=== PATIENT | male | born 1950 | race Caucasian/White ===

== ENCOUNTER 2016-06-27 09:54 | Outpatient (CLI) | payer MEDICARE, OTHER ==
[~2016-06-27] VITALS: Ht 165.1 cm; Wt 111.1 kg
[~2016-06-27 09:54] MED LIST: ACET-2267 PO; ASP81TEC PO; CARV25TA PO; HYDR-3820 PO; LEVO250T11 PO; LOSA25TA21 PO; MTF500T PO; OXYC5TAB71 PO; RAMI10TA PO; SPIR100T37 PO
--- OUTSIDE RECORDS SUMMARY | 2016-06-27 09:57 | XMS REPORT | Continuity of Care Document ---
Author Author [facility] Organization [facility] Address Unknown Phone Unavailable Care Team Providers Care Preprint Analyst Name Role Phone Pedro Sahil PCP [phone] Source Comments Some departments are not documenting in the electronic medical record. If you do not see the information that you expected, contact Release of Information in the Health Information Management department at [phone] for further assistance in locating additional records.[facility] Active Allergies and Adverse Reactions No Known Allergies Current Medications Prescription Sig. Disp. Refills Start End Date Status Date losartan(+) (COZAAR) 100 Take 100 mg by mouth at Active mg tablet bedtime daily. acetaminophen (TYLENOL) Take 2 Tabs by mouth 0 12/06/19 Active 500 mg tablet every 6 hours as needed 16 for Pain. Max of 4,000 mg of acetaminophen in 24 hours. Indications: PAIN polyethylene glycol 3350 Take 17 g by mouth twice 527 g 3 12/06/19 Active (GLYCOLAX; MIRALAX) 17 daily. 16 gram/dose powder metFORMIN-XR(+) Take 500 mg by mouth Active (GLUCOPHAGE XR) 500 mg twice daily with meals. extended release tablet Indications: TYPE 2 DIABETES MELLITUS oxyCODONE (ROXICODONE, Take 1-2 Tabs by mouth 30 Tab 0 12/14/19 Active OXY-IR) 5 mg tablet every 3 hours as needed 16 Earliest Fill Date: 12/14/15 aspirin EC 81 mg tablet Take 1 Tab by mouth 90 Tab 3 12/14/19 Active daily. Hold for one week. 16 CYCLOBENZAPRINE HCL Take 10 mg by mouth Active (CYCLOBENZAPRINE PO) daily. DICLOFENAC POTASSIUM PO Take by mouth. Active Active Problems Problem Noted Date Tumor of soft tissues 01/23/2016 Retroperitoneal bleed 12/14/2015 Sepsis (HCC) 12/11/2015 Renal cell carcinoma of left kidney (HCC) 10/29/2015 Overview: 5 cm lateral left renal mass - incidental finding Cr 1.4 Left robotic partial nephrectomy 12/04/15. Final pathology [id number], clear cell renal cell carcinoma, Damon 4; margins negative 12/11/15: Postoperative hematoma 04/10/16: Doing well. No evidence of disease recurrence. Hematoma slowly resolving on ultrasound. Patient with new diagnosis of spinal stenosis. L ast Assessment & Plan: Patient doing well overall. He has no evidence of cancer recurrence at this time. He will need continued surveillance. -- F/U [address] scan, CXR, and labs prior -- Referral to general surgery for umbilical hernia repair -- Referral to spine center for second opinion on spinal stenosis -- All questions answered Most Recent Encounters Date Type Specialty Providers Description 04/10/2016 Office Visit Urology Frankie Otoole MD Malignant neoplasm of left kidney (HCC) (Primary Dx); Spinal stenosis, unspecified spinal region; Umbilical hernia without obstruction and without gangrene; Renal cell carcinoma of left kidney (HCC) 04/10/2016 [facility] Frankie Otoole MD Malignant neoplasm of Encounter left kidney, except renal pelvis (HCC) 04/10/2016 [facility] Radiology Frankie Otoole MD Encounter 04/10/2016 [facility] Radiology Frankie Otoole MD Encounter Social History Tobacco Use Types Packs/Day Years Used Date Passive Smoke Exposure - Never Smoker Smokeless Tobacco: Never Used Alcohol Use Drinks/Week oz/Week Comments Yes 1 Glasses of 1.2 wine 1 Shots of liquor Last Filed Vital Signs Vital Sign Reading Time Taken Blood Pressure 131/83 04/10/2016 3:38 PM CORPORATE BUYER Pulse 88 04/10/2016 3:38 PM CORPORATE BUYER Temperature 36.6 C (97.9 F) 03/05/2016 3:46 PM CDT Respiratory Rate - - Height 1.753 m (5' 9") 04/10/2016 3:38 PM CORPORATE BUYER Weight 111.948 kg (246 lb 12.8 04/10/2016 3:38 PM CORPORATE BUYER oz) Body Mass Index 36.43 04/10/2016 3:38 PM CORPORATE BUYER Oxygen Saturation 98% 03/05/2016 3:46 PM CDT Plan of Care Date Type Specialty Providers Description 08/04/2016 Appointment Orthopedic Surgery Bronson Johnson MD [address] [facility] [address] [place] [address] [phone] (Fax) 10/09/2016 Appointment Radiology Frankie Otoole MD [address] [facility] [address] [place] [address] [phone] (Fax) 10/09/2016 Appointment Urology Frankie Otoole MD [address] [facility] [address] [place] [address] [phone] (Fax) Health Maintenance Due Date Last Done Comments Hepatitis C Screening 1950 Physical (Comprehensive) 1958 Exam Pertussis Vaccine 1962 Tetanus Vaccine 01/19/1968 Colorectal Cancer 2001 Screening Shingles Vaccine 2011 Influenza Vaccine 01/03/2016 Prevnar/Pneumovax (#1) 01/19/2016 Results from Last 3 Months COMPREHENSIVE METABOLIC PANEL (04/10/2016 3:20 PM) Component Value Range Sodium 135 (L) 137-147 MMOL/L Potassium 4.2 3.5-5.1 MMOL/L Chloride 103 98-110 MMOL/L Glucose 89 70-100 MG/DL Blood Urea Nitrogen 23 7-25 MG/DL Creatinine 1.29 (H) 0.4-1.24 MG/DL Calcium 9.9 8.5-10.6 MG/DL Total Protein 7.7 6.0-8.0 G/DL Total Bilirubin 0.5 0.3-1.2 MG/DL Albumin 4.3 3.5-5.0 G/DL Alk Phosphatase 35 25-110 U/L AST (SGOT) 24 7-40 U/L CO2 27 21-30 MMOL/L ALT (SGPT) 32 7-56 U/L Anion Gap 5 3-12 eGFR Non 56 (L)Comment: >60 mL/min The eGFR is not validated for use in drug dosing adjustments. Continue to use estimated creatinine clearance per dosing reference text. Please contact the Clinical Pharmacist for questions. eGFR >60Comment: >60 mL/min The eGFR is not validated for use in drug dosing adjustments. Continue to use estimated creatinine clearance per dosing reference text. Please contact the Clinical Pharmacist for questions. Specimen Blood CHEST 2 VIEWS (04/10/2016 2:48 PM) Addenda Addendum by Kam Patel MD on 04/14/2016 10:52 AM Finalized by KAM PATEL M.D. on 04/10/2016 4:11 PM. Dictated by Janneth Orozco M.D. on 04/10/2016 3:07 PM.Addendum: Addendum: Clinical history should include: Primary malignant neoplasm of left kidney Approved by Janneth Orozco M.D. on 04/14/2016 10:47 AM By my electronic signature, I attest that I have personally reviewed the images for this examination and formulated the interpretations and opinions expressed in this report Finalized by KAM PATEL M.D. on 04/14/2016 10:49 AM. Dictated by Janneth Orozco M.D. on 04/14/2016 10:46 AM. Impressions No acute cardiopulmonary abnormality. Approved by Janneth Orozco M.D. on 04/10/2016 3:38 PM By my electronic signature, I attest that I have personally reviewed the images for this examination and formulated the interpretations and opinions expressed in this report Narrative CHEST 2 VIEWS HISTORY: kidney cancer COMPARISON: December 11, 2015 FINDINGS: Cardiac silhouette is within normal limits. Tortuosity of the thoracic aorta. No pulmonary venous congestion. No pleural effusion, pneumothorax or focal consolidative process. Procedure Note Interface, Radiant Results - Mon Apr 14, 2016 10:52 AM CORPORATE BUYER CHEST 2 VIEWS HISTORY: kidney cancer COMPARISON: December 11, 2015 FINDINGS: Cardiac silhouette is within normal limits. Tortuosity of the thoracic aorta. No pulmonary venous congestion. No pleural effusion, pneumothorax or focal consolidative process. IMPRESSION No acute cardiopulmonary abnormality. Approved by Janneth Orozco M.D. on 04/10/2016 3:38 PM By my electronic signature, I attest that I have personally reviewed the images for this examination and formulated the interpretations and opinions expressed in this report RENAL BLADDER LTD (04/10/2016 2:40 PM) Impressions 1.Partial left nephrectomy with fat-filled cortical defect.A crescentic hypoechoic mass overlies the cortical defect, likely a chronic, resolving perinephric hematoma when compared to prior CT 12/11/2015.No discrete renal mass is identified, though continued imaging follow-up is recommended to ensure resolution of this hematoma. 2.Normal appearance of the right kidney. 3.Mild hepatomegaly and diffuse hepatic steatosis. Finalized by Maida Jones M.D. on 04/10/2016 4:14 PM. Dictated by Maida Jones M.D. on 04/10/2016 4:05 PM. Narrative Renal Ultrasound Clinical Indication: Male, 66 years; kidney cancer.History of robotic partial left nephrectomy 12/2015 for clear cell renal carcinoma. Postoperative course was complicated by perinephric hematoma. Technique: Multiple grayscale sonographic images were obtained through the urinary system with additional color Doppler acquisition. Comparison: CT abdomen/pelvis 12/11/2015 and 10/11/2015 Findings: The right kidney measures 11.7 x 5.7 cm.No hydronephrosis or solid renal mass. The left kidney measures 12 x 5.3 cm.A wide, fat filled cortical defect is noted at the lateral aspect of the left kidney related to prior nephrectomy. Just superficial to this, there is a crescentic hypoechoic structure measuring 5 cm in length x 1.7 cm in thickness.No internal blood flow detected in the region of the cortical defect, nor within this crescentic mass.No hydronephrosis or evidence of solid renal mass. The partially distended urinary bladder is unremarkable. Limited views of the liver demonstrate mild hepatomegaly and diffuse hepatic steatosis. Procedure Note Interface, Radiant Results - [place] Apr 10, 2016 4:17 PM CORPORATE BUYER Renal Ultrasound Clinical Indication: Male, 66 years; kidney cancer. History of robotic partial left nephrectomy 12/2015 for clear cell renal carcinoma. Postoperative course was complicated by perinephric hematoma. Technique: Multiple grayscale sonographic images were obtained through the urinary system with additional color Doppler acquisition. Comparison: CT abdomen/pelvis 12/11/2015 and 10/11/2015 Findings: The right kidney measures 11.7 x 5.7 cm. No hydronephrosis or solid renal mass. The left kidney measures 12 x 5.3 cm. A wide, fat filled cortical defect is noted at the lateral aspect of the left kidney related to prior nephrectomy. Just superficial to this, there is a crescentic hypoechoic structure measuring 5 cm in length x 1.7 cm in thickness. No internal blood flow detected in the region of the cortical defect, nor within this crescentic mass. No hydronephrosis or evidence of solid renal mass. The partially distended urinary bladder is unremarkable. Limited views of the liver demonstrate mild hepatomegaly and diffuse hepatic steatosis. IMPRESSION 1. Partial left nephrectomy with fat-filled cortical defect. A crescentic hypoechoic mass overlies the cortical defect, likely a chronic, resolving perinephric hematoma when compared to prior CT 12/11/2015. No discrete renal mass is identified, though continued imaging follow-up is recommended to ensure resolution of this hematoma. 2. Normal appearance of the right kidney. 3. Mild hepatomegaly and diffuse hepatic steatosis. Finalized by Maida Jones M.D. on 04/10/2016 4:14 PM. Dictated by Maida Jones M.D. on 04/10/2016 4:05 PM.
[2016-06-27] MEDS ORDERED: LIDOCAINE 1% INJ 20 ML (XYLOCAINE) VIAL ONE (10:00)
[2016-06-27] MEDS ORDERED: BUPIVACAINE 0.25% 30 ML (SENSORCAINE) VIAL ONE (10:00)
[2016-06-27] MEDS ORDERED: DEXAMETHASONE PF 10 MG/ML (DECADRON) VIAL ONE (10:00)
[2016-06-27 10:04] VITALS: BP 133/93
[2016-06-27] MEDS ORDERED: BUPIVACAINE 0.5% 30 ML (SENSORCAINE) VIAL ONE (10:25)
[2016-06-27 10:43] VITALS: BP 148/103
--- NOTE | 2016-06-27 11:32 | Pain Medicine-Procedure ---
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 PROCEDURE DETAILS: After obtaining an informed consent from the patient, the patient's chart was reviewed. The patient was brought to the procedure room and placed in a prone position. The neck was prepped with antiseptic solution, and under fluoroscopic guidance the articular pillar was identified at C4, C5, C6, and C7 on the right. Then 0.5 cc of 1% Lidocaine was used to anesthetize the skin. A 22 gauge 3.5 inch spinal needle was inserted through the skin under fluoroscopic guidance until it came in touch with the articular pillar at each level. placement of the needles was then confirmed in both the AP and lateral view. The exact samesteps were repeated for the left side. After negative aspiration,10 mg of dexamethasone total was injected in equal alliquots followed by 0.5 cc of 0.5% bupivacaine at each. The patient tolerated the procedure well. The needles were flushed and removed, and a Band-Aide was applied. Complications none JAMAAL WALSH MD Jun 27, 2016 11:32 am
== END 2016-06-27 10:46 | disposition home or self-care (01) ==
LOC: CARD 09:54
PROVIDERS: ATTEND Pain Medicine Pain Medicine
DX: M47.812 Spondylosis without myelopathy or radiculopathy, cervical region (principal)
CPT/HCPCS: 64490; 64491; 64492

== ENCOUNTER 2018-02-09 12:00 | Outpatient (CLI) | payer MEDICARE ==
[~2018-02-09] VITALS: Ht 175.3 cm; Wt 117.9 kg
[~2018-02-09 12:00] MED LIST changes: +DICL75TA2 PO; +GABA-488 PO; +LOSA100T8 PO; -LOSA25TA21 PO; +LOSA25TA6 PO; +METF-397 PO; +OXYC-529 PO; -OXYC5TAB71 PO
== END 2018-02-09 12:09 | disposition home or self-care (01) ==
LOC: PREOP 12:00
PROVIDERS: ATTEND Surgery
DX: Z01.818 Encounter for other preprocedural examination (principal)

== ENCOUNTER → 2018-02-10 | Day surgery (SDC) | payer MEDICARE, OTHER ==
[~2018-02-10] VITALS: Ht 175.3 cm; Wt 117.9 kg
[~2018-02-10] MED LIST changes: +LACTATED RINGERS 1,000 ML IV ONE; +LACTATED RINGERS 1,000 ML IV STA; +MIDAZOLAM 2 MG/2 ML (VERSED) VIAL ONE; +PROPOFOL INJECTION 50 ML IV ONE
--- OUTSIDE RECORDS SUMMARY | 2018-02-10 06:48 | XMS REPORT | Clinical Summary ---
Author Author [facility] Organization [facility] Address Unknown Phone Unavailable Care Team Providers Care Inter Com Servicer Name Role Phone Álvaro Cheney MD Unavailable Frankie Otoole MD Unavailable Fern Becker MD Unavailable Nancy Osborn RN Unavailable Unavailable Nivia Arzola RN 2 Unavailable Heber Ibrahim MD Unavailable Unavailable Lincoln Varghese MD Unavailable Sherry Salter RN Unavailable Unavailable Sahil Vasquez MD PCP Source Comments Some departments are not documenting in the electronic medical record. If you do not see the information that you expected, contact Release of Information in the Health Information Management department at [phone] for further assistance in locating additional records.[facility] Allergies No Known Allergies Current Medications Prescription Sig. Disp. Refills Start End Date Status Date losartan(+) (COZAAR) 100 Take 100 mg by mouth at Active mg tablet bedtime daily. acetaminophen (TYLENOL) Take 2 Tabs by mouth 0 12/06/19 Active 500 mg tabletIndications: every 6 hours as needed 16 Pain for Pain. Max of 4,000 mg of acetaminophen in 24 hours. Indications: PAIN metFORMIN-XR(+) Take 500 mg by mouth Active (GLUCOPHAGE XR) 500 mg twice daily with meals. extended release Indications: TYPE 2 tabletIndications: type 2 DIABETES MELLITUS diabetes mellitus aspirin EC 81 mg tablet Take 1 Tab by mouth 90 Tab 3 12/14/19 Active daily. Hold for one week. 16 gabapentin (NEURONTIN) Take 3 capsules by mouth 810 capsule 3 Active 300 mg three times daily. 90 day 17 capsuleIndications: supply Indications: Neuropathic Pain NEUROPATHIC PAIN diclofenac sodium DR Take 1 tablet by mouth 180 tablet 2 02/13/20 Active (VOLTAREN) 75 mg tablet twice daily. Take with 17 food. *90 day supply* tiZANidine (ZANAFLEX) 2 Take 1 tablet by mouth 30 tablet 5 02/13/20 Active mg tablet three times daily. 17 tamsulosin (FLOMAX) 0.4 Take one capsule by mouth 90 capsule 3 Active mg capsule daily. Take 30 min after 18 same meal. Do not cut/ crush/ chew. Active Problems Problem Noted Date Tumor of soft tissues 01/23/2016 Retroperitoneal bleed 12/14/2015 Sepsis (HCC) 12/11/2015 Renal cell carcinoma of left kidney (HCC) 10/29/2015 Overview: 5 cm lateral left renal mass - incidental finding Cr 1.4 Left robotic partial nephrectomy 12/04/15. Final pathology [id number], clear cell renal cell carcinoma, Damon 4; margins negative 12/11/15: Postoperative hematoma 04/10/16: Doing well. No evidence of disease recurrence. Hematoma slowly resolving on ultrasound. Patient with new diagnosis of spinal stenosis. 10/09/16: Doing well. No evidence of cancer recurrence. He had his umbilical hernia repaired. 04/20/17: No evidence of recurrence on ultrasound, CXR, or labs. 11/02/17: No evidence of recurrence on labs, CXR, or CT scan L ast Assessment & Plan: Patient doing well. No evidence of kidney cancer recurrence. We will now go to yearly surveillance -- F/U one year with labs, CXR, and ultrasound -- Warnings given to patient who expressed understanding -- All questions answered Encounters Date Type Specialty Care Team Description 12/15/2017 Hospital Radiology Allen Rayo MD Encounter 12/15/2017 Ancillary Anesthesia Pain Allen Rayo MD Thoracic radiculopathy Orders from Last 3 Months Family History Medical History Relation Name Comments Cancer-Colon Brother Unknown to Patient Father Cancer Mother Stroke Mother Relation Name Status Comments Brother Alive Father Mother Social History Tobacco Use Types Packs/Day Years Used Date Never Smoker Smokeless Tobacco: Never Used Alcohol Use Drinks/Week oz/Week Comments Yes 1 Glasses of 1.2 wine 1 Shots of liquor Sex Assigned at Date Recorded Not on file Last Filed Vital Signs Vital Sign Reading Time Taken Blood Pressure 143/86 11/02/2017 12:34 PM CDT Pulse 70 11/02/2017 12:34 PM CDT Temperature 36.8 C (98.2 F) 10/16/2017 1:12 PM CDT Respiratory Rate 15 05/28/2017 3:47 PM EXPRESSIVE THERAPIST Oxygen Saturation 95% 10/16/2017 4:20 PM CDT Inhaled Oxygen - - Concentration Weight 123.3 kg (271 lb 12.8 oz) 11/02/2017 12:34 PM CDT Height 175.3 cm (5' 9") 11/02/2017 12:34 PM CDT Body Mass Index 40.14 11/02/2017 12:34 PM CDT Plan of Treatment Health Maintenance Due Date Last Done Comments HEPATITIS C SCREENING 1950 PHYSICAL (COMPREHENSIVE) 1958 EXAM PERTUSSIS VACCINE 1962 TETANUS VACCINE 01/19/1968 COLORECTAL CANCER 2001 SCREENING SHINGLES RECOMBINANT 2001 VACCINE (1 of 2) PNEUMONIA (PCV13/PPSV23) 01/19/2016 VACCINES (1 of 2 - PCV13) INFLUENZA VACCINE 12/02/2017 Implants Implanted Type Area Program Advisor Device Expiration Model / Identifier Date Serial / Lot Patch Surgical Strap Spring Open N/A: CR BARD:DAVOL 01/29/2018 [id number] / Ventralex St Sepra Small Abdomen [id number] / Implanted: Qty: 1 on 08/18/2016 by N/A José Yoder MD Procedures Procedure Name Priority Date/Time Associated Diagnosis Comments FLUORO MOBILE IN OR Routine 12/15/2017 Thoracic radiculopathy Results for this 2:19 PM CDT procedure are in the results section. from Last 3 Months Results * FLUORO MOBILE IN OR (12/15/2017 2:19 PM) Narrative Performed At This order has been auto finalized and does not contain a result. YEIMY CRAIG Performing Organization Address City/State/Zipcode Phone Number YEIMY KIARA from Last 3 Months
--- OUTSIDE RECORDS SUMMARY | 2018-02-10 06:48 | XMS REPORT | Encounter Summary ---
Author Author [facility] Organization [facility] Address Unknown Phone Unavailable Care Team Providers Care Carton Repairer Name Role Phone Álvaro Cheney MD Unavailable Frankie Otoole MD Unavailable Fern Becker MD Unavailable Nancy Osborn RN Unavailable Unavailable Nivia Arzola RN 2 Unavailable Heber Ibrahim MD Unavailable Unavailable Lincoln Varghese MD Unavailable Sherry Salter RN Unavailable Unavailable Sahil Vasquez MD PCP Encounter Details Date Type Department Care Team Description 12/15/2017 [facility]illary [facility] Anesthesia Allen Rayo MD Thoracic radiculopathy Orders [facility] [address] [place] [address] Zaid Sr MD Comp [place] [address] [place] [address] [phone] [place] [address] [phone] Social History Tobacco Use Types Packs/Day Years Used Date Never Smoker Smokeless Tobacco: Never Used Alcohol Use Drinks/Week oz/Week Comments Yes 1 Glasses of 1.2 wine 1 Shots of liquor Sex Assigned at Date Recorded Not on file as of this encounter Functional Status Functional Status Response Date of Assessment Does the patient have a hearing impairment: No 10/16/2017 Does the patient have a visual impairment: Yes 10/16/2017 Does the patient have impaired ambulation: No 05/28/2017 Does the patient have an activity of daily living No 05/28/2017 (ADL) impairment: Does the patient have an instrumental activity of No 05/28/2017 daily living (IADL) impairment: Cognitive Status Response Date of Assessment Does the patient have a cognitive impairment: No 05/28/2017 as of this encounter Plan of Treatment Not on fileas of this encounter Results * FLUORO MOBILE IN OR (12/15/2017 2:19 PM) Narrative Performed At This order has been auto finalized and does not contain a result. YEIMY CRAIG Performing Organization Address City/State/Zipcode Phone Number CHRISTOPHERAMAIRANI CRAIG in this encounter Visit Diagnoses Diagnosis Thoracic radiculopathy Thoracic or lumbosacral neuritis or radiculitis, unspecified
--- OUTSIDE RECORDS SUMMARY | 2018-02-10 06:48 | XMS REPORT | Encounter Summary ---
Author Author [facility] Organization [facility] Address Unknown Phone Unavailable Care Team Providers Care Mechanics Handyman Name Role Phone Álvaro Cheney MD Unavailable Frankie Otoole MD Unavailable Fern Becker MD Unavailable Nancy Osborn RN Unavailable Unavailable Nivia Arzola RN 2 Unavailable Heber Ibrahim MD Unavailable Unavailable Lincoln Varghese MD Unavailable Sherry Salter RN Unavailable Unavailable Sahil Vasquez MD PCP Encounter Details Date Type Department Care Team Description 12/15/2017 Hospital [facility] Allen Rayo MD Encounter [facility] [address] [place] [address] [place] [address] [place] [address] [phone] Social History Tobacco Use Types Packs/Day Years [...] impairment: No 05/28/2017 as of this encounter Medications at Time of Discharge Medication Sig. Disp. Refills Start Date End Date acetaminophen (TYLENOL) Take 2 Tabs by mouth 0 12/06/2015 500 mg tabletIndications: every 6 hours as needed Pain for Pain. Max of 4,000 mg of acetaminophen in 24 hours. Indications: PAIN aspirin EC 81 mg tablet Take 1 Tab by mouth 90 Tab 3 12/14/2015 daily. Hold for one week. diclofenac sodium DR Take 1 tablet by mouth 180 tablet 2 02/12/2017 (VOLTAREN) 75 mg tablet twice daily. Take with food. *90 day supply* gabapentin (NEURONTIN) Take 3 capsules by mouth 810 capsule 3 2016 300 mg three times daily. 90 day capsuleIndications: supply Indications: Neuropathic Pain NEUROPATHIC PAIN losartan(+) (COZAAR) 100 Take 100 mg by mouth at mg tablet bedtime daily. metFORMIN-XR(+) Take 500 mg by mouth (GLUCOPHAGE XR) 500 mg twice daily with meals. extended release Indications: TYPE 2 tabletIndications: type 2 DIABETES MELLITUS diabetes mellitus tiZANidine (ZANAFLEX) 2 Take 1 tablet by mouth 30 tablet 5 02/12/2017 mg tablet three times daily. as of this encounter Plan of Treatment Not on fileas of this encounter Procedures Procedure Name Priority Date/Time Associated Diagnosis Comments FLUORO MOBILE IN OR Routine 12/15/2017 Thoracic radiculopathy Results for this 2:19 PM CDT procedure are in the results section. in this encounter Results * FLUORO MOBILE IN OR (12/15/2017 2:19 PM) Narrative Performed At This order has been auto finalized and does not contain a result. YEIMY CRAIG Performing Organization Address City/State/Zipcode Phone Number [facility] in this encounter Visit Diagnoses Diagnosis Thoracic radiculopathy Thoracic or lumbosacral neuritis or radiculitis, unspecified
--- OUTSIDE RECORDS SUMMARY | 2018-02-10 06:49 | XMS REPORT | Continuity of Care Document ---
Author Author [facility] Organization [facility] Address Unknown Phone Unavailable Allergies Active Description Code Type Severity Reaction Onset Reported/Identified Relationship to Patient Clinical Status Yes No Known Drug Allergies [id number] Drug Allergy Unknown N/A 11/26/2011 Medications There is no data. Problems Date Dx Coded Attending Type Code Diagnosis Diagnosed By 10/05/2015 Ot 250.00 DIAB BRIANDA WO COMPL, TYPE II OR UNSPEC TY 10/05/2015 Ot 272.4 HYPERLIPIDEMIA NEC/NOS 10/05/2015 Ot 276.7 HYPERPOTASSEMIA 10/05/2015 Ot 401.9 HYPERTENSION NOS 10/05/2015 Ot 780.79 OTH MALAISE FATIGUE 10/05/2015 Ot 794.31 ABNORM ELECTROCARDIOGRAM 10/05/2015 Ot 794.31 ABNORM ELECTROCARDIOGRAM 10/09/2015 TJ JOSEPH MD Ot M47.892 OTHER SPONDYLOSIS, CERVICAL REGION 10/09/2015 TJ JOSEPH MD Ot M47.896 OTHER SPONDYLOSIS, LUMBAR REGION 10/09/2015 OPAL ESPANA, TJ Garza Ot M51.24 OTHER INTERVERTEBRAL DISC DISPLACEMENT, 10/09/2015 TJ JOSEPH MD Ot M51.27 OTHER INTERVERTEBRAL DISC DISPLACEMENT, 10/09/2015 TJ JOSEPH MD Ot M54.2 CERVICALGIA 10/09/2015 TJ JOSEPH MD Ot M54.5 LOW BACK PAIN 10/09/2015 TJ JOSEPH MD Ot M54.9 DORSALGIA, UNSPECIFIED 10/09/2015 TJ JOSEPH MD Ot N28.9 DISORDER OF KIDNEY AND URETER, UNSPECIFI 10/09/2015 TJ JOSEPH MD Ot R22.1 LOCALIZED SWELLING, MASS AND LUMP, NECK 10/10/2015 TJ JOSEPH MD Ot M47.892 OTHER SPONDYLOSIS, CERVICAL REGION 10/10/2015 TJ JOSEPH MD Ot M47.896 OTHER SPONDYLOSIS, LUMBAR REGION 10/10/2015 TJ JOSEPH MD Ot M51.24 OTHER INTERVERTEBRAL DISC DISPLACEMENT, 10/10/2015 TJ JOSEPH MD Ot M51.27 OTHER INTERVERTEBRAL DISC DISPLACEMENT, 10/10/2015 TJ JOSEPH MD Ot M54.2 CERVICALGIA 10/10/2015 TJ JOSEPH MD Ot M54.5 LOW BACK PAIN 10/10/2015 TJ JOSEPH MD Ot M54.9 DORSALGIA, UNSPECIFIED 10/10/2015 TJ JOSEPH MD Ot N28.9 DISORDER OF KIDNEY AND URETER, UNSPECIFI 10/10/2015 TJ JOSEPH MD Ot R22.1 LOCALIZED SWELLING, MASS AND LUMP, NECK 10/11/2015 Ot 250.00 DIAB BRIANDA WO COMPL, TYPE II OR UNSPEC TY 10/11/2015 Ot 272.4 HYPERLIPIDEMIA NEC/NOS 10/11/2015 Ot 276.7 HYPERPOTASSEMIA 10/11/2015 Ot 401.9 HYPERTENSION NOS 10/11/2015 Ot 780.79 OTH MALAISE FATIGUE 10/11/2015 Ot 794.31 ABNORM ELECTROCARDIOGRAM 10/11/2015 Ot 794.31 ABNORM ELECTROCARDIOGRAM 10/11/2015 TJ JOSEPH MD Ot M47.892 OTHER SPONDYLOSIS, CERVICAL REGION 10/11/2015 TJ JOSEPH MD Ot M47.896 OTHER SPONDYLOSIS, LUMBAR REGION 10/11/2015 TJ JOSEPH MD Ot M51.24 OTHER INTERVERTEBRAL DISC DISPLACEMENT, 10/11/2015 TJ JOSEPH MD Ot M51.27 OTHER INTERVERTEBRAL DISC DISPLACEMENT, 10/11/2015 TJ JOSEPH MD Ot M54.2 CERVICALGIA 10/11/2015 TJ JOSEPH MD Ot M54.5 LOW BACK PAIN 10/11/2015 TJ JOSEPH MD Ot M54.9 DORSALGIA, UNSPECIFIED 10/11/2015 TJ JOSEPH MD Ot N28.9 DISORDER OF KIDNEY AND URETER, UNSPECIFI 10/11/2015 TJ JOSEPH MD Ot R22.1 LOCALIZED SWELLING, MASS AND LUMP, NECK 10/12/2015 TJ JOSEPH MD Ot M47.892 OTHER SPONDYLOSIS, CERVICAL REGION 10/12/2015 TJ JOSEPH MD Ot M47.896 OTHER SPONDYLOSIS, LUMBAR REGION 10/12/2015 TJ JOSEPH MD Ot M51.24 OTHER INTERVERTEBRAL DISC DISPLACEMENT, 10/12/2015 TJ JOSEPH MD Ot M51.27 OTHER INTERVERTEBRAL DISC DISPLACEMENT, 10/12/2015 TJ JOSEPH MD Ot M54.2 CERVICALGIA 10/12/2015 TJ JOSEPH MD Ot M54.5 LOW BACK PAIN 10/12/2015 TJ JOSEPH MD Ot M54.9 DORSALGIA, UNSPECIFIED 10/12/2015 TJ JOSEPH MD Ot N28.9 DISORDER OF KIDNEY AND URETER, UNSPECIFI 10/12/2015 TJ JOSEPH MD Ot R22.1 LOCALIZED SWELLING, MASS AND LUMP, NECK 10/17/2015 TJ JOSEPH MD Ot K42.9 UMBILICAL HERNIA WITHOUT OBSTRUCTION OR 10/17/2015 TJ JOSEPH MD Ot K76.0 FATTY (CHANGE OF) LIVER, NOT ELSEWHERE C 10/17/2015 TJ JOSEPH MD Ot N28.89 OTHER SPECIFIED DISORDERS OF KIDNEY AND 10/17/2015 TJ JOSEPH MD Ot R22.2 LOCALIZED SWELLING, MASS AND LUMP, TRUNK 10/27/2015 TJ JOSEPH MD Ot M47.892 OTHER SPONDYLOSIS, CERVICAL REGION 10/27/2015 TJ JOSEPH MD Ot M47.896 OTHER SPONDYLOSIS, LUMBAR REGION 10/27/2015 TJ JOSEPH MD Ot M51.24 OTHER INTERVERTEBRAL DISC DISPLACEMENT, 10/27/2015 TJ JOSEPH MD Ot M51.27 OTHER INTERVERTEBRAL DISC DISPLACEMENT, 10/27/2015 JT JOSEPH MD Ot M54.2 CERVICALGIA 10/27/2015 TJ JOSEPH MD Ot M54.5 LOW BACK PAIN 10/27/2015 TJ JOSEPH MD Ot M54.9 DORSALGIA, UNSPECIFIED 10/27/2015 TJ JOSEPH MD Ot N28.9 DISORDER OF KIDNEY AND URETER, UNSPECIFI 10/27/2015 TJ JOSEPH MD Ot R22.1 LOCALIZED SWELLING, MASS AND LUMP, NECK 11/08/2015 TJ JOSEPH MD Ot K42.9 UMBILICAL HERNIA WITHOUT OBSTRUCTION OR 11/08/2015 TJ JOSEPH MD Ot K76.0 FATTY (CHANGE OF) LIVER, NOT ELSEWHERE C 11/08/2015 TJ JOSEPH MD Ot N28.89 OTHER SPECIFIED DISORDERS OF KIDNEY AND 11/08/2015 TJ JOSEPH MD Ot R22.2 LOCALIZED SWELLING, MASS AND LUMP, TRUNK 12/11/2015 KRISTY MILLER MD Ot C64.2 MALIGNANT NEOPLASM OF LEFT KIDNEY, EXCEP 12/11/2015 KRISTY MILLER MD Ot N99.820 POSTPROC HEMOR/HEMTOM OF A SYS ORG FO 12/11/2015 KRISTY MILLER MD Ot R10.32 LEFT LOWER QUADRANT PAIN 12/12/2015 KRISTY MILLER MD Ot C64.2 MALIGNANT NEOPLASM OF LEFT KIDNEY, EXCEP 12/12/2015 KRISTY MILLER MD Ot N99.820 POSTPROC HEMOR/HEMTOM OF A SYS ORG FO 12/12/2015 KRISTY MILLER MD Ot R10.32 LEFT LOWER QUADRANT PAIN 12/19/2015 Ot 250.00 DIAB BRIANDA WO COMPL, TYPE II OR UNSPEC TY 12/19/2015 Ot 272.4 HYPERLIPIDEMIA NEC/NOS 12/19/2015 Ot 276.7 HYPERPOTASSEMIA 12/19/2015 Ot 401.9 HYPERTENSION NOS 12/19/2015 Ot 780.79 OTH MALAISE FATIGUE 12/19/2015 Ot 794.31 ABNORM ELECTROCARDIOGRAM 12/19/2015 Ot 794.31 ABNORM ELECTROCARDIOGRAM 12/19/2015 OPAL ESPANA, TJ Garza Ot M47.892 OTHER SPONDYLOSIS, CERVICAL REGION 12/19/2015 TJ JOSEPH MD Ot M47.896 OTHER SPONDYLOSIS, LUMBAR REGION 12/19/2015 OPAL ESPANA, TJ Garza Ot M51.24 OTHER INTERVERTEBRAL DISC DISPLACEMENT, 12/19/2015 TJ JOSEPH MD Ot M51.27 OTHER INTERVERTEBRAL DISC DISPLACEMENT, 12/19/2015 TJ JOSEPH MD Ot M54.2 CERVICALGIA 12/19/2015 TJ JOSEPH MD Ot M54.5 LOW BACK PAIN 12/19/2015 TJ JOSEPH MD Ot M54.9 DORSALGIA, UNSPECIFIED 12/19/2015 TJ JOSEPH MD Ot N28.9 DISORDER OF KIDNEY AND URETER, UNSPECIFI 12/19/2015 TJ JOSEPH MD Ot R22.1 LOCALIZED SWELLING, MASS AND LUMP, NECK 12/19/2015 TJ JOSEPH MD Ot K42.9 UMBILICAL HERNIA WITHOUT OBSTRUCTION OR 12/19/2015 TJ JOSEPH MD Ot K76.0 FATTY (CHANGE OF) LIVER, NOT ELSEWHERE C 12/19/2015 TJ JOSEPH MD Ot N28.89 OTHER SPECIFIED DISORDERS OF KIDNEY AND 12/19/2015 TJ JOSEPH MD Ot R22.2 LOCALIZED SWELLING, MASS AND LUMP, TRUNK 12/20/2015 Ot 250.00 DIAB BRIANDA WO COMPL, TYPE II OR UNSPEC TY 12/20/2015 Ot 272.4 HYPERLIPIDEMIA NEC/NOS 12/20/2015 Ot 276.7 HYPERPOTASSEMIA 12/20/2015 Ot 401.9 HYPERTENSION NOS 12/20/2015 Ot 780.79 OTH MALAISE FATIGUE 12/20/2015 Ot 794.31 ABNORM ELECTROCARDIOGRAM 12/20/2015 Ot 794.31 ABNORM ELECTROCARDIOGRAM 12/20/2015 OPAL ESPANA, TJ Garza Ot M47.892 OTHER SPONDYLOSIS, CERVICAL REGION 12/20/2015 OPAL ESPANA, TJ Garza Ot M47.896 OTHER SPONDYLOSIS, LUMBAR REGION 12/20/2015 TJ JOSEPH MD Ot M51.24 OTHER INTERVERTEBRAL DISC DISPLACEMENT, 12/20/2015 TJ JOSEPH MD Ot M51.27 OTHER INTERVERTEBRAL DISC DISPLACEMENT, 12/20/2015 TJ JOSEPH MD Ot M54.2 CERVICALGIA 12/20/2015 TJ JOSEPH MD Ot M54.5 LOW BACK PAIN 12/20/2015 TJ JOSEPH MD Ot M54.9 DORSALGIA, UNSPECIFIED 12/20/2015 TJ JOSEPH MD Ot N28.9 DISORDER OF KIDNEY AND URETER, UNSPECIFI 12/20/2015 OPAL ESPANA, TJ Garza Ot R22.1 LOCALIZED SWELLING, MASS AND LUMP, NECK 12/20/2015 TJ JOSEPH MD Ot K42.9 UMBILICAL HERNIA WITHOUT OBSTRUCTION OR 12/20/2015 OPAL ESPANA, TJ Garza Ot K76.0 FATTY (CHANGE OF) LIVER, NOT ELSEWHERE C 12/20/2015 TJ JOSEPH MD Ot N28.89 OTHER SPECIFIED DISORDERS OF KIDNEY AND 12/20/2015 OPAL ESPANA, TJ Garza Ot R22.2 LOCALIZED SWELLING, MASS AND LUMP, TRUNK 12/20/2015 LUÍS JAMES MD Ot K42.9 UMBILICAL HERNIA WITHOUT OBSTRUCTION OR 12/20/2015 LUÍS JAMES MD Ot R31.0 GROSS HEMATURIA 12/20/2015 LUÍS JAMES MD Ot Z90.5 ACQUIRED ABSENCE OF KIDNEY 12/21/2015 LUÍS JAMES MD Ot K42.9 UMBILICAL HERNIA WITHOUT OBSTRUCTION OR 12/21/2015 LUÍS JAMES MD Ot R31.0 GROSS HEMATURIA 12/21/2015 LUÍS JAMES MD Ot Z90.5 ACQUIRED ABSENCE OF KIDNEY 02/22/2016 Ot 250.00 DIAB BRIANDA WO COMPL, TYPE II OR UNSPEC TY 02/22/2016 Ot 272.4 HYPERLIPIDEMIA NEC/NOS 02/22/2016 Ot 276.7 HYPERPOTASSEMIA 02/22/2016 Ot 401.9 HYPERTENSION NOS 02/22/2016 Ot 780.79 OTH MALAISE FATIGUE 02/22/2016 Ot 794.31 ABNORM ELECTROCARDIOGRAM 02/22/2016 Ot 794.31 ABNORM ELECTROCARDIOGRAM 02/22/2016 TJ JOSEPH MD Ot M47.892 OTHER SPONDYLOSIS, CERVICAL REGION 02/22/2016 TJ JOSEPH MD Ot M47.896 OTHER SPONDYLOSIS, LUMBAR REGION 02/22/2016 TJ JOSEPH MD Ot M51.24 OTHER INTERVERTEBRAL DISC DISPLACEMENT, 02/22/2016 TJ JOSEPH MD Ot M51.27 OTHER INTERVERTEBRAL DISC DISPLACEMENT, 02/22/2016 TJ JOSEPH MD Ot M54.2 CERVICALGIA 02/22/2016 TJ JOSEPH MD Ot M54.5 LOW BACK PAIN 02/22/2016 TJ JOSEPH MD Ot M54.9 DORSALGIA, UNSPECIFIED 02/22/2016 TJ JOSEPH MD Ot N28.9 DISORDER OF KIDNEY AND URETER, UNSPECIFI 02/22/2016 TJ JOSEPH MD Ot R22.1 LOCALIZED SWELLING, MASS AND LUMP, NECK 02/22/2016 TJ JOSEPH MD Ot K42.9 UMBILICAL HERNIA WITHOUT OBSTRUCTION OR 02/22/2016 TJ JOSEPH MD Ot K76.0 FATTY (CHANGE OF) LIVER, NOT ELSEWHERE C 02/22/2016 TJ JOSEPH MD Ot N28.89 OTHER SPECIFIED DISORDERS OF KIDNEY AND 02/22/2016 TJ JOSEPH MD Ot R22.2 LOCALIZED SWELLING, MASS AND LUMP, TRUNK 02/26/2016 Ot 250.00 DIAB BRIANDA WO COMPL, TYPE II OR UNSPEC TY 02/26/2016 Ot 272.4 HYPERLIPIDEMIA NEC/NOS 02/26/2016 Ot 276.7 HYPERPOTASSEMIA 02/26/2016 Ot 401.9 HYPERTENSION NOS 02/26/2016 Ot 780.79 OTH MALAISE FATIGUE 02/26/2016 Ot 794.31 ABNORM ELECTROCARDIOGRAM 02/26/2016 Ot 794.31 ABNORM ELECTROCARDIOGRAM 02/26/2016 TJ JOSEPH MD Ot M47.892 OTHER SPONDYLOSIS, CERVICAL REGION 02/26/2016 TJ JOSEPH MD Ot M47.896 OTHER SPONDYLOSIS, LUMBAR REGION 02/26/2016 TJ JOSEPH MD Ot M51.24 OTHER INTERVERTEBRAL DISC DISPLACEMENT, 02/26/2016 TJ JOSEPH MD Ot M51.27 OTHER INTERVERTEBRAL DISC DISPLACEMENT, 02/26/2016 TJ JOSEPH MD Ot M54.2 CERVICALGIA 02/26/2016 TJ JOSEPH MD Ot M54.5 LOW BACK PAIN 02/26/2016 TJ JOSEPH MD Ot M54.9 DORSALGIA, UNSPECIFIED 02/26/2016 TJ JOSEPH MD Ot N28.9 DISORDER OF KIDNEY AND URETER, UNSPECIFI 02/26/2016 TJ JOSEPH MD Ot R22.1 LOCALIZED SWELLING, MASS AND LUMP, NECK 02/26/2016 TJ JOSEPH MD Ot K42.9 UMBILICAL HERNIA WITHOUT OBSTRUCTION OR 02/26/2016 TJ JOSEPH MD Ot K76.0 FATTY (CHANGE OF) LIVER, NOT ELSEWHERE C 02/26/2016 TJ JOSEPH MD Ot N28.89 OTHER SPECIFIED DISORDERS OF KIDNEY AND 02/26/2016 TJ JOSEPH MD Ot R22.2 LOCALIZED SWELLING, MASS AND LUMP, TRUNK 03/17/2016 JAMAAL WALSH MD Ot M50.13 CERVICAL DISC DISORDER W RADICULOPATHY, 03/19/2016 JAMAAL WALSH MD Ot M50.13 CERVICAL DISC DISORDER W RADICULOPATHY, 03/31/2016 JAMAAL WALSH MD Ot M50.13 CERVICAL DISC DISORDER W RADICULOPATHY, 04/11/2016 JAMAAL WALSH MD Ot M50.13 CERVICAL DISC DISORDER W RADICULOPATHY, 05/07/2016 JAMAAL WALSH MD Ot M50.13 CERVICAL DISC DISORDER W RADICULOPATHY, 06/27/2016 Ot 250.00 DIAB BRIANDA WO COMPL, TYPE II OR UNSPEC TY 06/27/2016 Ot 272.4 HYPERLIPIDEMIA NEC/NOS 06/27/2016 Ot 276.7 HYPERPOTASSEMIA 06/27/2016 Ot 401.9 HYPERTENSION NOS 06/27/2016 Ot 780.79 OTH MALAISE FATIGUE 06/27/2016 Ot 794.31 ABNORM ELECTROCARDIOGRAM 06/27/2016 Ot 794.31 ABNORM ELECTROCARDIOGRAM 06/27/2016 TJ JOSEPH MD Ot M47.892 OTHER SPONDYLOSIS, CERVICAL REGION 06/27/2016 TJ JOSEPH MD, Ot M47.896 OTHER SPONDYLOSIS, LUMBAR REGION 06/27/2016 TJ JOSEPH MD, Ot M51.24 OTHER INTERVERTEBRAL DISC DISPLACEMENT, 06/27/2016 TJ JOSEPH MD Ot M51.27 OTHER INTERVERTEBRAL DISC DISPLACEMENT, 06/27/2016 TJ JOSEPH MD, Ot M54.2 CERVICALGIA 06/27/2016 TJ JOSEPH MD Ot M54.5 LOW BACK PAIN 06/27/2016 TJ JOSEPH MD, Ot M54.9 DORSALGIA, UNSPECIFIED 06/27/2016 TJ JOSEPH MD Ot N28.9 DISORDER OF KIDNEY AND URETER, UNSPECIFI 06/27/2016 TJ JOSEPH MD Ot R22.1 LOCALIZED SWELLING, MASS AND LUMP, NECK 06/27/2016 TJ JOSEPH MD Ot K42.9 UMBILICAL HERNIA WITHOUT OBSTRUCTION OR 06/27/2016 TJ JOSEPH MD Ot K76.0 FATTY (CHANGE OF) LIVER, NOT ELSEWHERE C 06/27/2016 TJ JOSEPH MD Ot N28.89 OTHER SPECIFIED DISORDERS OF KIDNEY AND 06/27/2016 TJ JOSEPH MD, Ot R22.2 LOCALIZED SWELLING, MASS AND LUMP, TRUNK 06/27/2016 JAMAAL WALSH MD Ot M50.13 CERVICAL DISC DISORDER W RADICULOPATHY, 06/27/2016 JAMAAL WALSH MD, Ot M47.812 SPONDYLOSIS W/O MYELOPATHY OR RADICULOPA 02/09/2018 LORETA CHAVEZ DO Ot Z01.818 ENCOUNTER FOR OTHER PREPROCEDURAL EXAMIN Procedures There is no data. Results Test Result Range Complete blood count (CBC) with automated white blood cell (WBC) differential - 12/11/15 06:20 Blood leukocytes automated count (number/volume) 21.4 10*3/uL 4.3-11.0 Blood erythrocytes automated count (number/volume) 3.41 10*6/uL 4.35-5.85 Venous blood hemoglobin measurement (mass/volume) 11.1 g/dL 13.3-17.7 Blood hematocrit (volume fraction) 34 % 40-54 Automated erythrocyte mean corpuscular volume 98 [foz_us] 80-99 Automated erythrocyte mean corpuscular hemoglobin (mass per erythrocyte) 33 pg 25-34 Automated erythrocyte mean corpuscular hemoglobin concentration measurement ( mass/volume) 33 g/dL 32-36 Automated erythrocyte distribution width ratio 12.9 % 10.0-14.5 Automated blood platelet count (count/volume) 442 10*3/uL 130-400 Automated blood platelet mean volume measurement 9.6 [foz_us] 7.4-10.4 Automated blood neutrophils/100 leukocytes 61 % 42-75 Automated blood lymphocytes/100 leukocytes 26 % 12-44 Blood monocytes/100 leukocytes 8 % 0-12 Automated blood eosinophils/100 leukocytes 4 % 0-10 Automated blood basophils/100 leukocytes 1 % 0-10 Blood neutrophils automated count (number/volume) 13.1 10*3 1.8-7.8 Blood lymphocytes automated count (number/volume) 5.6 10*3 1.0-4.0 Blood monocytes automated count (number/volume) 1.7 10*3 0.0-1.0 Automated eosinophil count 0.9 10*3/uL 0.0-0.3 Automated blood basophil count (count/volume) 0.1 10*3/uL 0.0-0.1 PT panel in platelet poor plasma by coagulation assay - 12/11/15 06:20 Prothrombin time (PT) in platelet poor plasma by coagulation assay 14.2 s 12.2-14.7 INR in platelet poor plasma or blood by coagulation assay 1.1 0.8-1.4 Activated partial thromboplastin time (aPTT) in platelet poor plasma bycoagulation assay - 12/11/15 06:20 Activated partial thromboplastin time (aPTT) in platelet poor plasma bycoagulation assay 29 s 24-35 Blood manual differential performed detection - 12/11/15 06:20 Blood monocytes/100 leukocytes 13 % NRG Manual blood segmented neutrophils/100 leukocytes 52 % NRG Blood band neutrophils/100 leukocytes 0 % NRG Manual blood lymphocytes/100 leukocytes 22 % NRG Manual eosinophils/100 leukocytes in nose 2 % NRG Manual blood basophils/100 leukocytes 0 % NRG Blood lymphocytes variant/100 leukocytes 11 % NRG Blood toxic granules detection by light microscopy 1+ NRG Blood lactic acid measurement (moles/volume) - 12/11/15 06:20 Blood lactic acid measurement (moles/volume) 4.2 mmol/L 0.5-2.0 Comprehensive metabolic panel - 12/11/15 06:20 Serum or plasma sodium measurement (moles/volume) 138 mmol/L 135-145 Serum or plasma potassium measurement (moles/volume) 3.5 mmol/L 3.6-5.0 Serum or plasma chloride measurement (moles/volume) 100 mmol/L 98-107 Carbon dioxide 24 mmol/L 21-32 Serum or plasma anion gap determination (moles/volume) 14 mmol/L 5-14 Serum or plasma urea nitrogen measurement (mass/volume) 11 mg/dL 7-18 Serum or plasma creatinine measurement (mass/volume) 1.30 mg/dL 0.60-1.30 Serum or plasma urea nitrogen/creatinine mass ratio 8 NRG Serum or plasma creatinine measurement with calculation of estimated glomerular filtration rate 56 NRG Serum or plasma glucose measurement (mass/volume) 222 mg/dL 70-105 Serum or plasma calcium measurement (mass/volume) 9.5 mg/dL 8.5-10.1 Serum or plasma total bilirubin measurement (mass/volume) 0.6 mg/dL 0.1-1.0 Serum or plasma alkaline phosphatase measurement (enzymatic activity/volume) 42 U/L 40-136 Serum or plasma aspartate aminotransferase measurement (enzymatic activity/ volume) 32 U/L 5-34 Serum or plasma alanine aminotransferase measurement (enzymatic activity/volume ) 32 U/L 0-55 Serum or plasma protein measurement (mass/volume) 6.5 g/dL 6.4-8.2 Serum or plasma albumin measurement (mass/volume) 3.4 g/dL 3.2-4.5 Magnesium - 12/11/15 06:20 Magnesium 1.8 mg/dL 1.8-2.4 Serum or plasma troponin i.cardiac measurement (mass/volume) - 12/11/15 06:20 Serum or plasma troponin i.cardiac measurement (mass/volume) < ng/ mL <0.30 Capillary blood glucose measurement by glucometer (mass/volume) - 12/11/15 06: 20 Capillary blood glucose measurement by glucometer (mass/volume) 206 mg/dL 70-110 Bacterial blood culture - 12/11/15 06:20 Bacterial blood culture NG NRG Arterial blood gas measurement - 12/11/15 07:10 Blood pCO2 32 mm[Hg] 35-45 Blood pO2 62 mm[Hg] 79-93 Arterial blood bicarbonate measurement (moles/volume) 22 mmol/L 23-27 Arterial blood base excess by calculation -2.1 mmol/L - 2.5-2.5 Arterial blood oxygen saturation measurement 95 % 94-100 * Inhaled oxygen flow rate 2 NRG Arterial blood pH measurement with patient temperature correction 7.44 7.37-7.43 Arterial blood carbon dioxide, total measurement (moles/volume) 23.1 mmol/L 21.0-31.0 Body site RT RADIAL NRG Assessment of wrist artery patency prior to arterial puncture YES- POS NRG Setting of ventilation mode NO NRG Measurement of body temperature 95.0 NRG Bacterial blood culture - 12/11/15 07:19 Bacterial blood culture NG NRG Complete urinalysis with reflex to culture - 12/11/15 07:53 Urine color determination YELLOW NRG Urine clarity determination CLEAR NRG Urine pH measurement by test strip 5 5-9 Specific gravity of urine by test strip 1.020 1.016- 1.022 Urine protein assay by test strip, semi-quantitative 2+ NEGATIVE Urine glucose detection by automated test strip NEGATIVE NEGATIVE Erythrocytes detection in urine sediment by light microscopy 4+ NEGATIVE Urine ketones detection by automated test strip NEGATIVE NEGATIVE Urine nitrite detection by test strip NEGATIVE NEGATIVE Urine total bilirubin detection by test strip NEGATIVE NEGATIVE Urine urobilinogen measurement by automated test strip (mass/volume) NORMAL NORMAL Urine leukocyte esterase detection by dipstick 1+ NEGATIVE Automated urine sediment erythrocyte count by microscopy (number/high power field) [HPF] NRG Automated urine sediment leukocyte count by microscopy (number/high power field ) [HPF] NRG Bacteria detection in urine sediment by light microscopy FEW NRG Squamous epithelial cells detection in urine sediment by light microscopy RARE NRG Crystals detection in urine sediment by light microscopy NONE NRG Casts detection in urine sediment by light microscopy PRESENT NRG Mucus detection in urine sediment by light microscopy NEGATIVE NRG Complete urinalysis with reflex to culture YES NRG Amorphous sediment detection in urine sediment by light microscopy MOD BREA URATES NRG Hyaline casts detection in urine sediment by light microscopy >50 NRG Bacterial urine culture - 12/11/15 07:53 Bacterial urine culture NG NRG Serum or plasma lactate measurement (moles/volume) - 12/11/15 08:23 Serum or plasma lactate measurement (moles/volume) 3.5 mmol/L 0.5-2.0 Automated blood complete blood count (hemogram) panel - 12/11/15 09:00 Blood leukocytes automated count (number/volume) 15.9 10*3/uL 4.3-11.0 Blood erythrocytes automated count (number/volume) 2.65 10*6/uL 4.35-5.85 Venous blood hemoglobin measurement (mass/volume) 8.7 g/dL 13.3-17.7 Blood hematocrit (volume fraction) 26 % 40-54 Automated erythrocyte mean corpuscular volume 100 [foz_us] 80-99 Automated erythrocyte mean corpuscular hemoglobin (mass per erythrocyte) 33 pg 25-34 Automated erythrocyte mean corpuscular hemoglobin concentration measurement ( mass/volume) 33 g/dL 32-36 Automated erythrocyte distribution width ratio 12.9 % 10.0-14.5 Automated blood platelet count (count/volume) 310 10*3/uL 130-400 Automated blood platelet mean volume measurement 9.4 [foz_us] 7.4-10.4 Complete urinalysis with reflex to culture - 12/19/15 00:00 Urine color determination YELLOW NRG Urine clarity determination CLEAR NRG Urine pH measurement by test strip 8 5-9 Specific gravity of urine by test strip 1.015 1.016- 1.022 Urine protein assay by test strip, semi-quantitative 1+ NEGATIVE Urine glucose detection by automated test strip NEGATIVE NEGATIVE Erythrocytes detection in urine sediment by light microscopy 5+ NEGATIVE Urine ketones detection by automated test strip NEGATIVE NEGATIVE Urine nitrite detection by test strip NEGATIVE NEGATIVE Urine total bilirubin detection by test strip NEGATIVE NEGATIVE Urine urobilinogen measurement by automated test strip (mass/volume) NORMAL NORMAL Urine leukocyte esterase detection by dipstick NEGATIVE NEGATIVE Automated urine sediment erythrocyte count by microscopy (number/high power field) [HPF] NRG Automated urine sediment leukocyte count by microscopy (number/high power field ) RARE NRG Bacteria detection in urine sediment by light microscopy TRACE NRG Squamous epithelial cells detection in urine sediment by light microscopy 0-2 NRG Crystals detection in urine sediment by light microscopy NONE NRG Casts detection in urine sediment by light microscopy NONE NRG Mucus detection in urine sediment by light microscopy NEGATIVE NRG Complete urinalysis with reflex to culture NO NRG PT panel in platelet poor plasma by coagulation assay - 12/19/15 23:30 Prothrombin time (PT) in platelet poor plasma by coagulation assay 14.4 s 12.2-14.7 INR in platelet poor plasma or blood by coagulation assay 1.2 0.8-1.4 Activated partial thromboplastin time (aPTT) in platelet poor plasma bycoagulation assay - 12/19/15 23:30 Activated partial thromboplastin time (aPTT) in platelet poor plasma bycoagulation assay 33 s 24-35 Complete blood count (CBC) with automated white blood cell (WBC) differential - 12/19/15 23:30 Blood leukocytes automated count (number/volume) 12.6 10*3/uL 4.3-11.0 Blood erythrocytes automated count (number/volume) 3.29 10*6/uL 4.35-5.85 Venous blood hemoglobin measurement (mass/volume) 10.7 g/dL 13.3-17.7 Blood hematocrit (volume fraction) 33 % 40-54 Automated erythrocyte mean corpuscular volume 99 [foz_us] 80-99 Automated erythrocyte mean corpuscular hemoglobin (mass per erythrocyte) 33 pg 25-34 Automated erythrocyte mean corpuscular hemoglobin concentration measurement ( mass/volume) 33 g/dL 32-36 Automated erythrocyte distribution width ratio 13.9 % 10.0-14.5 Automated blood platelet count (count/volume) 668 10*3/uL 130-400 Automated blood platelet mean volume measurement 9.1 [foz_us] 7.4-10.4 Automated blood neutrophils/100 leukocytes 61 % 42-75 Automated blood lymphocytes/100 leukocytes 22 % 12-44 Blood monocytes/100 leukocytes 11 % 0-12 Automated blood eosinophils/100 leukocytes 6 % 0-10 Automated blood basophils/100 leukocytes 1 % 0-10 Blood neutrophils automated count (number/volume) 7.7 10*3 1.8-7.8 Blood lymphocytes automated count (number/volume) 2.7 10*3 1.0-4.0 Blood monocytes automated count (number/volume) 1.4 10*3 0.0-1.0 Automated eosinophil count 0.7 10*3/uL 0.0-0.3 Automated blood basophil count (count/volume) 0.1 10*3/uL 0.0-0.1 Comprehensive metabolic panel - 12/19/15 23:30 Serum or plasma sodium measurement (moles/volume) 139 mmol/L 135-145 Serum or plasma potassium measurement (moles/volume) 4.4 mmol/L 3.6-5.0 Serum or plasma chloride measurement (moles/volume) 103 mmol/L 98-107 Carbon dioxide 23 mmol/L 21-32 Serum or plasma anion gap determination (moles/volume) 13 mmol/L 5-14 Serum or plasma urea nitrogen measurement (mass/volume) 14 mg/dL 7-18 Serum or plasma creatinine measurement (mass/volume) 1.08 mg/dL 0.60-1.30 Serum or plasma urea nitrogen/creatinine mass ratio 13 NRG Serum or plasma creatinine measurement with calculation of estimated glomerular filtration rate > NRG Serum or plasma glucose measurement (mass/volume) 96 mg/dL 70-105 Serum or plasma calcium measurement (mass/volume) 9.8 mg/dL 8.5-10.1 Serum or plasma total bilirubin measurement (mass/volume) 0.7 mg/dL 0.1-1.0 Serum or plasma alkaline phosphatase measurement (enzymatic activity/volume) 98 U/L 40-136 Serum or plasma aspartate aminotransferase measurement (enzymatic activity/ volume) 18 U/L 5-34 Serum or plasma alanine aminotransferase measurement (enzymatic activity/volume ) 20 U/L 0-55 Serum or plasma protein measurement (mass/volume) 7.3 g/dL 6.4-8.2 Serum or plasma albumin measurement (mass/volume) 3.7 g/dL 3.2-4.5 Encounters ACCT No. Visit Date/Time Discharge Status Pt. Type Provider Facility Loc./Unit Complaint [id number] 02/09/2018 12:00:00 02/09/2018 12:09:00 DIS Outpatient LORETA CHAVEZ DO [facility] PREOP COLONOSCOPY [id number] 06/27/2016 09:54:00 06/27/2016 10:46:00 DIS Outpatient JAMAAL WALSH MD [facility] CARD [id number] 04/11/2016 12:31:00 04/11/2016 13:44:00 DIS Outpatient JAMAAL WALSH MD [facility] CARD DISC DISORDER [id number] 02/22/2016 11:05:00 02/22/2016 23:59:59 CLS Outpatient JAMAAL WALSH MD [facility] CARD DISC DISORDER [id number] 12/19/2015 21:58:00 12/20/2015 01:25:00 DIS Emergency LUÍS JAMES MD [facility] ER URINATING BLOOD [id number] 12/11/2015 06:04:00 12/11/2015 10:05:00 DIS Emergency ANGELA ESPANA, KRISTY Davis [facility] ER POST OP KIDNEY SURGERY PAIN [id number] 10/11/2015 09:18:00 10/11/2015 23:59:59 CLS Outpatient TJ JOSEPH MD [facility] RAD MASS L POSTERIOR LEVEL C 7,LESION LATERAL L KIDNEY [id number] 10/05/2015 16:48:00 10/05/2015 23:59:59 CLS Outpatient TJ JOSEPH MD [facility] RAD UPPER BACK,NECK,LOW BACK PAIN [id number] 02/10/2018 06:45:00 ACT Outpatient LORETA CHAVEZ DO [facility] ENDO SCREENING [id number] 11/28/2011 07:16:00 Document Registration [id number] 11/18/2011 12:20:00 Document Registration [id number] 10/27/2011 09:51:00 Document Registration
[2018-02-10 07:32] VITALS: BP 147/96
--- NOTE | 2018-02-10 08:15 | Progress Note-Pre Operative ---
Pre-Operative Progress Note H&P Reviewed The H&P was reviewed, patient examined and no changes noted. Time Seen by Provider: 08:09 Date H&P Reviewed: Feb 10, 2018 Time H&P Reviewed: 08:10 Pre-Operative Diagnosis: Screening colonoscopy LORETA CHAVEZ DO Feb 10, 2018 08:15
--- NOTE | 2018-02-10 08:58 | Progress Note-Post Operative ---
Post-Operative Progess Note Surgeon (s)/Computer Tester (s) Surgeon LORETA CHAVEZ DO Computer Tester: none Pre-Operative Diagnosis Screening colonoscopy Post-Operative Diagnosis Colon Polyps Diverticula Internal hemorrhoids Procedure & Operative Findings Date of Procedure 02/10/18 Procedure Performed/Findings Colonoscopy with snare polypectomy Anesthesia Type IV Sedation by MARKER SHIPMENTS Estimated Blood Loss Estimated blood loss (mL): scant Specimens/Packing Specimens Removed Ascending colon polyp Sigmoid colon polyp LORETA CHAVEZ DO Feb 10, 2018 08:58
[2018-02-10 09:00] VITALS: BP 138/80
--- NOTE | 2018-02-10 09:00 | Endoscopy Discharge Instruct ---
Endo Procedure/Findings Findings 1.: Polyp 2.: Diverticulosis 3.: Internal Hemorrhoids Discharge Instructions - Activity: You might feel a little sleepy until tomorrow. This is due to the medicine you received to relax you. Until tomorrow, you should: NOT drive a car, operate machinery or power tools. NOT drink any alcoholic beverages. NOT make any important decisions or sign importortant papers. Do not return to work until tomorrow, unless otherwise instructed. Resume previous activities tomorrow. Diet: Start by taking liquids. If you tolerate liquids, advance to solid food. make an appointment for one week Instructions: 1.: Colonscopy in 5 years Notify Physician - If you experience excessive bleeding, unusual abdominal pain, fever, or chest pain, contact your doctor immediately. Follow-Up: - I have received and understand the above instructions and will call my doctor if I have any further questions. Patient Signature Date Nurse Signature Other (Relationship) LORETA CHAVEZ DO Feb 10, 2018 09:00
[2018-02-10 09:30] VITALS: BP 145/90
[2018-02-10 09:40] VITALS: BP 145/90
--- NOTE | 2018-02-10 13:13 | OPERATIVE REPORT ---
DATE OF SERVICE: 02/10/2018 PREOPERATIVE DIAGNOSIS: Screening colonoscopy. POSTOPERATIVE DIAGNOSES: 1. Colon polyps. 2. Diverticula. 3. Internal hemorrhoids. PROCEDURE: Colonoscopy with snare polypectomy. SURGEON: Pernell Dean DO MACHINE SETTER AND REPAIRER: None. ANESTHESIA: IV sedation by the BRAILLE CODER. SPECIMEN: One polyp from the ascending colon and one polyp from the sigmoid colon. BLOOD LOSS: Scant. FLUIDS: Per anesthesia. POSTOPERATIVE CONDITION: Stable. INDICATION FOR PROCEDURE: The patient is a 68-year-old male, who has never had a colonoscopy and has a brother recently diagnosed with colon cancer. FINDINGS: The patient had polyps, one in the ascending colon and one in the transverse colon. He also had some diverticula and some internal hemorrhoid. Also, I saw an AVM and took a picture of this. PROCEDURE NOTE: After informed consent was obtained, the patient was brought to the endoscopy suite and placed in the left lateral decubitus position. He was administered IV sedation by the BRAILLE CODER, who then monitored his vitals the entire time, heart rate, blood pressure and pulse ox and the scope was inserted, pushed all the way to the cecum. On the way in, noted some diverticula and AVM. Pictures were taken. I was able to get all the way to cecum, took a picture of appendiceal orifice, noted the ileocecal valve and then slowly withdrew the scope insufflating to look circumferentially at the bishop. Looking at the cecum up into the ascending colon, we saw a small polyp to snare polypectomy this and then continued up to the hepatic flexure, then down the transverse colon to the splenic flexure and then down the descending colon, again saw some diverticula throughout here and then into the sigmoid, saw another polyp, took a picture of the polyp and then removed it with a snare polypectomy, continued down into the rectum, retroflexed in the rectal vault, saw some minimal internal hemorrhoids, took a picture and then removed the scope. The patient tolerated the procedure and he was recovered in the endoscopy suite. Job ID: [id number] DocumentID: [id number] Dictated Date: 02/10/2018 09:30:01 Scrap Charger Date: 02/10/2018 13:12:51 Dictated By: PERNELL DEAN DO MTDD
--- NOTE | 2018-02-10 15:12 | Anesthesia-General Post-Op ---
MAC Patient Condition Mental Status/LOC: Same as Preop Cardiovascular: Satisfactory Nausea/Vomiting: Absent Respiratory: Satisfactory Pain: Controlled Complications: Absent Post Op Complications Complications None Follow Up Care/Instructions Patient Instructions None needed. Anesthesiology Discharge Order Discharge Order Patient was seen after the procedure this morning and he was doing well, no complaints, stable vital signs, no apparent adverse anesthesia problems. SOPHIA BHATT DO Feb 10, 2018 15:12
== END ==
LOC: ENDO 06:45
PROVIDERS: ATTEND Surgery
DX: Z12.11 Encounter for screening for malignant neoplasm of colon (principal); D12.5 Benign neoplasm of sigmoid colon; K63.5 Polyp of colon; K57.30 Diverticulosis of large intestine without perforation or abscess without bleeding; K55.20 Angiodysplasia of colon without hemorrhage; K64.8 Other hemorrhoids; Z80.0 Family history of malignant neoplasm of digestive organs; I10 Essential (primary) hypertension; E66.01 Morbid (severe) obesity due to excess calories; Z68.41 Body mass index [BMI] 40.0-44.9, adult; Z79.899 Other long term (current) drug therapy

== ENCOUNTER → 2019-04-18 | Outpatient (CLI) | payer MEDICARE, OTHER ==
[~2019-04-18] MED LIST changes: -LACTATED RINGERS 1,000 ML IV ONE; -LACTATED RINGERS 1,000 ML IV STA; +LOSA100T57 PO; -LOSA100T8 PO; +LOSA25TA41 PO; -LOSA25TA6 PO; -MIDAZOLAM 2 MG/2 ML (VERSED) VIAL ONE; -PROPOFOL INJECTION 50 ML IV ONE
[2019-04-18 13:43] LABS: HEMOGLOBIN 14.7 G/DL (13.3-17.7); MEAN PLATELET VOLUME 9.4 FL (7.4-10.4); RED CELL DISTRIBUTION WIDTH 13.3 % (10.0-14.5); WHITE BLOOD COUNT 12.7 10^3/uL (4.3-11.0)
[2019-04-18 14:04] LABS: ALANINE AMINOTRANSFERASE 59 U/L (0-55); ALBUMIN 4.3 GM/DL (3.2-4.5); ALKALINE PHOSPHATASE 45 U/L (40-136); BILIRUBIN,TOTAL 0.5 MG/DL (0.1-1.0); BUN/CREATININE RATIO 19; CALCIUM 9.6 MG/DL (8.5-10.1); CARBON DIOXIDE 24 MMOL/L (21-32); CHLORIDE 101 MMOL/L (98-107); CREATININE SERUM 1.05 MG/DL (0.60-1.30); GFR ESTIMATED > 60; GLUCOSE 135 MG/DL (70-105); POTASSIUM 4.4 MMOL/L (3.6-5.0); SODIUM 136 MMOL/L (135-145); TOTAL PROTEIN 7.5 GM/DL (6.4-8.2)
--- NOTE | 2019-04-18 15:11 | Diagnostic Imaging Report ---
INDICATION: Cough for 8 weeks. TIME OF EXAM: 2:28 p.m. COMPARISON: Correlation is made with prior chest from 12/11/2015. FINDINGS: The heart size is normal. The pulmonary vascularity is unremarkable. The lungs are clear. No infiltrate, effusion or pneumothorax is detected. IMPRESSION: No acute cardiopulmonary process is detected. Dictated by: Dictated on workstation # [id number]
== END ==
LOC: RAD 13:29
PROVIDERS: ATTEND Family Medicine
DX: R05 Cough (principal); R51 Headache; R07.81 Pleurodynia
CPT/HCPCS: 36415; 71045; 80053; 85027

== ENCOUNTER → 2023-01-02 | Outpatient (CLI) | payer MEDICARE, OTHER ==
[~2023-01-02] MED LIST changes: +ACHYD1T PO; -HYDR-3820 PO; -LOSA100T57 PO; +LOSA100T58 PO; +OXC5T PO; -OXYC-529 PO
--- NOTE | 2023-01-02 11:42 | Diagnostic Imaging Report ---
INDICATION: Left periauricular nodule. Ultrasound of the soft tissues of the periauricular area on the left show a 9 x 9 x 4 mm lymph node. This is adjacent to the parotid gland. IMPRESSION: There is a 9 mm lymph node adjacent to the parotid gland on the left. Dictated by: Dictated on workstation # [id number]
== END ==
LOC: RAD 09:12
PROVIDERS: ATTEND Registered Nurse Critical Care Medicine
DX: L04.8 Acute lymphadenitis of other sites (principal); R22.0 Localized swelling, mass and lump, head
CPT/HCPCS: 76536